=== PATIENT | male | born 2000 | race African-American/Black ===

== ENCOUNTER 2021-03-16 15:36 | Emergency (ER) | payer OTHER ==
[~2021-03-16] VITALS: Ht 182.9 cm; Wt 106.6 kg
[2021-03-16] MEDS ORDERED: BACTRIM DS TAB1 EAC1 PO (16:19)
[2021-03-16] MEDS ORDERED: NORCO5 PO (16:19)
[2021-03-16 16:27] VITALS: BP 142/67
== END 2021-03-16 16:32 | disposition home or self-care (01) ==
LOC: ER 15:36
DX: L05.01 Pilonidal cyst with abscess (principal); F12.90 Cannabis use, unspecified, uncomplicated

== ENCOUNTER 2021-03-18 12:22 | Emergency (ER) | payer OTHER ==
[~2021-03-18] VITALS: Ht 182.9 cm; Wt 106.6 kg
[~2021-03-18 12:22] MED LIST: BACTRIM DS TAB1 EAC1 PO; NORCO5 PO
[2021-03-18 13:25] VITALS: BP 131/71
== END 2021-03-18 13:55 | disposition home or self-care (01) ==
LOC: ER 12:22
DX: L05.01 Pilonidal cyst with abscess (principal); Z79.899 Other long term (current) drug therapy; Z79.891 Long term (current) use of opiate analgesic

== ENCOUNTER 2021-04-15 21:44 | Emergency (ER) | payer OTHER ==
[~2021-04-15] VITALS: Ht 182.9 cm; Wt 102.1 kg
[2021-04-15 21:48] VITALS: BP 134/84
[2021-04-15] MEDS ORDERED: AMOXICILLIN500 M1 PO (21:55)
== END 2021-04-15 22:20 | disposition home or self-care (01) ==
LOC: ER 21:44
DX: K04.7 Periapical abscess without sinus (principal)